=== PATIENT | female | born 1975 | race Caucasian/White ===

== ENCOUNTER → 2018-12-09 14:42 | Outpatient (CLI) | payer OTHER, SELFPAY ==
[2018-12-12 13:11] LABS: HPV Reflexed? NOT INDICATED
== END ==
PROVIDERS: Visit Provider Obstetrics & Gynecology
DX: Z12.4 Encounter for screening for malignant neoplasm of cervix (principal)
CPT/HCPCS: 87624; 88175; G0145

== ENCOUNTER → 2019-01-20 10:06 | Outpatient (CLI) | payer SELFPAY ==
--- NOTE | 2019-01-20 10:11 | BI_ITS ---
MAMMOGRAPHY - BILATERAL SCREENING REASON FOR EXAM: Female, 43 years old. Routine annual screening examination. PERTINENT HISTORY: Grandmother with breast cancer. Aunts with breast cancer. TECHNIQUE: Digital bilateral breast don (3D mammographic acquisition) in the CC and MLO projections. 2-D mediolateral oblique (MLO) and craniocaudad (CC) views of both breasts were obtained. CAD: Full Field Digital Mammography with Computer Added Detection was performed. COMPARISON: Comparison is made with prior mammogram dated March 26, 2017. FINDINGS: Breast Composition: There are scattered areas of fibroglandular density. There are no dominant masses or suspicious calcifications. The previously seen 1.3 cm x 1.3 cm nodular density in the retroareolar region of the left breast as markedly decreased in size. A tissue clip marker is seen within the included with the history of prior biopsy. Faint calcifications are seen within this nodule. This is unchanged. No other significant abnormalities are identified. BI/SCREENING MAMM (CAD), BILAT IMPRESSION: Status post biopsy of the left retroareolar nodule with a tissue clip marker within it. The nodule has also completely resolved at this time. Mild residual calcifications seen. Yearly follow-up mammogram recommended. (A) ASSESSMENT CATEGORY: BIRADS Category 2: Benign. A letter regarding these results will be sent to the patient by the facility within 30 days. Approximately 10% of breast cancers are not detected by mammography. A normal mammogram should not delay biopsy of a clinically suspicious abnormality. [id number] Electronically Signed: Toño Mahmood, at 11:23 EDT , Service support ,
== END ==
PROVIDERS: Family Provider Family Medicine; PCP Family Medicine; Referring Provider Obstetrics & Gynecology; Visit Provider Obstetrics & Gynecology
DX: Z12.31 Encounter for screening mammogram for malignant neoplasm of breast (principal)
CPT/HCPCS: 77063; 77067

== ENCOUNTER 2022-11-20 07:49 | Day surgery (SDC) | payer SELFPAY, OTHER ==
[2022-11-20] VITALS (7 sets, daily range): BP systolic 134–154; BP diastolic 78–93; PULSE 73–96; RESP 15–18; TEMP 36.2–36.6; O2SAT 99–100; BMI 37.0
[2022-11-20] MEDS: Lactated Ringers 1,000 ML 15 ML IV (08:10)
--- NOTE | 2022-11-20 10:04 | HP.PCM_ITS ---
HPI - General HPI Narrative JOSY LEE, is a 47 F who presents for left knee scope, partial MM. no changes to h and p. Wishes to proceed. left knee marked. Narcotic counselling. Post op activity details given, ROM and WBAT crutches PRN for 2 weeks. OK to proceed. MR#: [id number] Acct: [id number] Name:PIPER GANT JJ Rep #: [id number] : 07/27/1981 ? ? Provider: Dr. Ritesh Mcgill MD Age/Sex:? 41/F ? ? Location: [facility] [place] Status: Signed Intake Intake Visit Reasons:?RIGHT SHOULDER Allergies No Known Allergies Allergy (Verified 10/25/22 09:24) Medications ibuprofen 200 mg tablet 200 mg PO Q6H PRN 06/14/22 [History Confirmed 10/25/22] cholecalciferol (vitamin D3) 125 mcg (5,000 unit) capsule 125 mcg PO DAILY 10/25/22 [History Confirmed 10/25/22] PFSH Medical History? Compartment syndrome Hypothyroid Impingement syndrome of right shoulder Irritant contact dermatitis due to plant Right rotator cuff tear Surgical History? History of Family History? Mother Diabetes Hypertension Cancer Uterine cancerFather Hypertension Myocardial infarctionGrandfather Cancer Heart diseaseGrandmother CVA (cerebral vascular accident) Heart disease Social History? Smoking Status:? Never smoker HPI RIGHT SHOULDER Details: Parts of this documentation were recorded by a scribe, this documentation accurately reflects the service provided and the decisions made by me, Dr. Ritesh Mcgill MD 10/25/22 0848. 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 She is still having pain anteriorly as well as laterally going down the arm worse with lifting.? She does have to do some physical activities lifting related to her job at the [employer] and [employer].? She seems to have some pain at the top of the arm as well as with reaching across the body. Ortho Exam General General: Yes no acute distress Neurologic: Yes alert and Yes oriented x3 Psychologic: Yes reasonable and appropriate Right Shoulder Skin/Wound: Yes CDI, No ecchymosis, No erythema and No swelling Testing: Positive Hawkin's, Neer's, TTP AC Joint, AROM-Forward Elevation 0-180, PROM-External Rotation at side 0-60, empty can and cross arm; Negative TTP Biceps, Drop Arm, Apprehension Test or Sulcus Sign SHOULDER: painful arc POS Supplemental Info [facility] Imaging Services [address] [place] [address] Upper Ext? Joint Only(Routine) MR#:? [id number] Acct: [id number] Name:? PIPER FARMER JJ Rep #: [id number] :?? 07/27/1981 F 41 ? From:? ? Devin Case MD PCP: Dr. Boris Kat, DO ? Status: REG CLI Study: Upper Ext? Joint Only(Routine) ? Date of Exam: 10/23/22 Exam# [id number] ? Ordering Dr:? Ritesh Mcgill MD EXAM:? MR RIGHT UPPER EXTREMITY WITHOUT INTRAVENOUS CONTRAST, SHOULDER CLINICAL INDICATION:? pain, rule out RC tear, linmited r.o.m TECHNIQUE:? Multiplanar and multisequence MR images of the right shoulder without intravenous contrast.? This report was created using [employer] report generation technology. COMPARISON:? None. FINDINGS: TENDONS: SUPRASPINATUS:? Unremarkable.? Intact. INFRASPINATUS:? Unremarkable.? Intact. SUBSCAPULARIS:? Unremarkable.? Intact. TERES MINOR:? Unremarkable.? Intact. BICEPS BRACHII, LONG HEAD:? Unremarkable.? The extra-articular biceps tendon is in the bicipital groove.? The intra-articular biceps tendon is normal. LIGAMENTS: GLENOHUMERAL:? Unremarkable.? Intact. CORACOACROMIAL:? Type II acromion with curved undersurface. No subacromial enthesophyte or os acromiale. No coracoacromial ligament thickening. MUSCLES:? Unremarkable.? No rotator cuff muscle atrophy. FLUID:? Unremarkable.? No joint effusion.? No subacromial-subdeltoid space bursal fluid. CARTILAGE:? Unremarkable.? Articular cartilage intact. GLENOID LABRUM:? Unremarkable.? Intact, limited evaluation on non-arthrographic exam. BONES/JOINTS: Mild hypertrophic degenerative changes of the acromioclavicular joint.? No fracture.? No abnormal bone marrow signal. OTHER SOFT TISSUES:? Unremarkable.? No rotator interval edema. MRI/Upper Ext? Joint Only(Routine) IMPRESSION: No rotator cuff or labral tearing. Mild degenerative changes of the acromioclavicular joint. ? Electronically Signed: Devin Case MD at 22:05 EST Reading Location ID and State: [facility] / [place] Tel , Service support? , ? Coding Level of Care Code Off vis,est,level 4 Diagnoses Impingement syndrome of right shoulder? M75.41 Right shoulder pain? M25.511 Time Spent (min) 30 Assessment and Plan Assessment and Plan (1) Impingement syndrome of right shoulder: ?Status:?Acute ?Plan: 41-year-old female with right shoulder pain despite extensive conservative management.? She has mild AC joint arthrosis on the MRI no obvious rotator cuff tear but this does seem to be internal impingement/tendinitis of the rotator cuff tendons and bursitis.? She has failed extensive conservative management including injection and therapy.? She wishes to go ahead with surgical management in this case I would recommend right shoulder arthroscopy, subacromial decompression, distal clavicle excision.? Discussed the pros and cons risks and benefits of continued conservative management versus surgery.? Small risk of AC joint late instability with distal clavicle excision and the subacromial decompression the undersurface acromion appears relatively flat but this also includes bursectomy which typically does help for laterally based shoulder pain worse with lifting.? We discussed the diagnosis prognosis and afte rcare associate with surgery 2 weeks to heal the incision 6 weeks likely before going back to any sort of significant activity. As well as if I did see a rotator cuff tear then I would go ahead and repair that but if there is no repair to be done? then no activity restrictions and trying to discontinue the sling within the first 2 weeks.? The patient understood had no further questions or concerns. ?pros and cons risks and benefits were discussed with the patient including but not limited to infection, pain, stiffness, bleeding, damage to surrounding structures, neurovascular injury, recurrence or retear, failure or wear of hardware or fixation, instability, fracture, deep vein thrombosis and pulmonary embolism, anesthetic risks, patient dissatisfaction, need for further surgery and other risks.? Patient understood and wished to proceed with surgery, and signed the informed consent documentation.? PFSH Medical History Arthritis History of edema History of pain when walking Left knee pain Migraine headache Non-smoker Osteoarthritis of left knee Tear of medial meniscus of left knee Wears dentures Wears glasses Home Medications tramadol 50 mg tablet 50 mg PO Q6H PRN Pain 11/13/22 [History Last Taken Unknown] Allergy/AdvReac Type Severity Reaction Status Date / Time acetaminophen [From Vicodin] Allergy Other Verified 11/20/22 08:22 hydrocodone [From Vicodin] Allergy Other Verified 11/20/22 08:22 Surgical History History of delivery Hx of laparoscopy Hx of ovarian cystectomy Social History Smoking Status: Never smoker Vital Signs Vital Signs Vital Signs: 11/20/22 08:23 11/20/22 08:23 Temperature 98 F Temperature Source Temporal Pulse Rate 73 Respiratory Rate 15 Respiratory Pattern Normal Blood Pressure 134/78 H Blood Pressure Mean 96 Blood Pressure Source Monitor Blood Pressure Position Semi-Fowlers Blood Pressure Location Left Arm Pulse Ox 100 Oxygen Delivery Method Room Air Weight Weight: 216 lb 0.848 oz Body Mass Index (BMI) 37.0
[2022-11-20] MEDS: Cefazolin 2 GM in 0.9% Normal Saline 100 ML IV (12:02)
[2022-11-20] MEDS: Epinephrine (1 mg/ml) 1 MG/ML VIAL (12:46)
--- NOTE | 2022-11-20 12:51 | OP.PCM_ITS ---
Problems Associated Problem List Diagnoses (1) Osteoarthritis of left knee: (2) Tear of medial meniscus of left knee: (3) Synovial plica of left knee: Report of Operation Date of Procedure: 11/20/22 Pre-Operative Diagnosis: Left knee arthritis and medial meniscus tear Post-Operative Diagnosis: Same and medial plica Surgery/Procedure Performed:: Left knee arthroscopy debridement and partial medial meniscectomy and removal of plica Description of Surgical Findings:: Patient brought to the operating room theater. Placed supine on the operating table. General anesthesia induced. 2 g IV Ancef administered prior to start of the case. Stress positioner to the patient's left lower extremity. 44 inch tourniquet applied appropriately padded to the left thigh. All bony prominences padded. Lower extremity prepped and draped in the usual sterile fashion prior to base prep solution allowing over 3 minutes drying time prior to draping. Preoperative timeout performed to confirm the site patient and the surgery. Began by elevating the leg and inflating the tourniquet to 250 mmHg. I made standard anterolateral and anteromedial arthroscopy portals. Grade 4 changes at the trochlea. Medial patellar facet grade 2 changes lateral patellar facet grade 4 changes. Debrided a moderate to large sized plica at the medial aspect of the knee. Gently debrided any cartilage flaps. Medial and lateral gutters entered no loose bodies but moderate sized osteophytes. ACL have some mild degenerative changes but intact. Medial compartment grade 3- 4 changes on the femoral side as well as grade 3 changes on the tibial side. Degenerative posterior horn medial meniscus tear debrided to stable margins removed about 10% of the total surface area of the meniscus. Lateral compartment entered. Again there is areas of the full-thickness cartilage loss lateral femoral condyle. Tibial side grade 1. Meniscus appeared intact and normal. Arthroscopy pictures taken and saved throughout. Case terminated tourniquet let down. Meticulous hemostasis. Skin cleaned with wet and dry dressing. Portals closed with Steri-Strips followed by Adaptic 4 x 4 gauze abdominal pad and 6 inch Nathanael bandages. Patient woken up from the GA and taken to postanesthetic care unit in stable position. Plan to the patient gentle range of motion weightbearing as tolerated and crutches follow-up in the office in 2 days time and discharged home according to day surgery criteria when they are stable and comfortable. Surgeon: Ritesh Mcgill Type of Anesthesia: General and Local Anesthesiologist: Teo Aragon Estimated Blood Loss (mL): 20 Complications none Admit VTE Documentation VTE Present on Admission: No VTE Mechan Device Prophylaxis: SCD's VTE Pharm Prophylaxis ordered?: No Reason prophylaxis not ordered:: Treatment Not Indicated Procedures Musculoskeletal 20xxx-29xxx: Other Procedure See Report
--- NOTE | 2022-11-20 13:11 | DCINST_ITS ---
Discharge Instructions Diet Discharge Diet: No restrictions Activity Ice area for (Minutes): 10 Weight Bearing Status: Full weight bearing Additional Activity Instructions:: ROM as tolerated, crutches as needed Dressing / Incision Call your doctor if your incision/area has: Continuous Slow Oozing, Sudden Increased Bleeding, Increased Pain/ Swelling, Increased Redness, Foul Smelling Discharge and Swelling at the incision site Change Dressing in: leave in place till F/U Follow Up Care Please Follow Up With: Ritesh Mcgill MD When: 2 days Test Results: Test results from this visit will be discussed in further detail at your follow- up appointment, if applicable. Discharge Plan Admission Attending Provider: Ritesh Mcgill Primary Care Provider: Raymond Romero Instructions Patient Instructions: After Knee Arthroscopy Discharge Orders/Prescriptions Prescriptions: No Action tramadol 50 mg Tablet 50 mg PO Q6H PRN (Reason: Pain) Referrals / Follow Up: Ritesh Mcgill MD [Med Staff - Active Staff] - Raymond Romero MD [Primary Care Provider] - Disposition Disposition (needs filled in before D/C Order can be placed): Home, Self Care
--- NOTE | 2022-11-20 13:21 | DCINST_ITS ---
Discharge Instructions Diet Discharge Diet: No restrictions Activity Ice area for (Minutes): 10 Weight Bearing Status: Full weight bearing Additional Activity Instructions:: ROM as tolerated, crutches as needed Dressing / Incision Call your doctor if your incision/area has: Continuous Slow Oozing, Sudden Increased Bleeding, Increased Pain/ Swelling, Increased Redness, Foul Smelling Discharge and Swelling at the incision site Follow Up Care Please Follow Up With: Ritesh Mcgill MD Test Results: Test results from this visit will be discussed in further detail at your follow- up appointment, if applicable. Discharge Plan Admission Attending Provider: Ritesh Mcgill Primary Care Provider: Raymond Romero Instructions Patient Instructions: After Knee Arthroscopy Discharge Orders/Prescriptions Prescriptions: New hydromorphone [Dilaudid] 2 mg tablet 2 mg PO Q4H MDD 6 PRN (Reason: pain) 7 Days Qty: 20 0RF No Action tramadol 50 mg Tablet 50 mg PO Q6H PRN (Reason: Pain) Referrals / Follow Up: Ritesh Mcgill MD [Med Staff - Active Staff] - Raymond Romero MD [Primary Care Provider] - Disposition Disposition (needs filled in before D/C Order can be placed): Home, Self Care
[2022-11-20] MEDS: HYDROmorphone 2 MG TABLET PO (14:50)
--- NOTE | 2023-01-01 14:50 | PCM.HP.STD ---
HPI - General HPI Narrative JOSY LEE, is a 47 F who presents for left knee arthroscopy. The record was deficient and missed at the day of surgery, however, per my recollection on this date, Jan 01, 2023, the patient, site and operation including consent were confirmed day of surgery. Including no changes to h and p. Extremity marked. Post op care and narcotic counselling discussed. OK to proceed. Acct: [id number] Name:? JOSY LEE Rep #: [id number] : 1975 ? ? Provider: Dr. Ritesh Mcgill MD Age/Sex:? 47/F ? ? Location: [facility] [place].[facility] Status: Signed Intake Intake Visit Reasons:?LEFT KNEE PFSH Medical History?(Updated 10/24/22 @ 09:48 by Ritesh Mcgill MD) Left knee pain Osteoarthritis of left knee Tear of medial meniscus of left knee Social History Smoking Status:? Never smoker HPI LEFT KNEE Details: Parts of this documentation were recorded by a scribe, this documentation accurately reflects the service provided and the decisions made by me, Dr. Ritesh Mcgill MD 10/22/22 [id number]. JOSY LEE is a 47 year old F here today for left knee pain, 6 months, twisted it getting out of buggy, medial side pain and locking, had a cortisone injection in June, no help. Maybe for 2 days. Swelling usually there. Tried oral anti inflamms. ? Ortho Exam General General: Yes no acute distress Neurologic: Yes alert and Yes oriented x3 Psychologic: Yes reasonable and appropriate Right Knee Patella Translation: 2 Left Knee Skin/Wound: Yes CDI, No ecchymosis, No erythema and No swelling Knee ROM: Yes ROM-Flexion 0-140 Examination: Yes med jt line tenderness, Yes Lat jt line tenderness, No TTP inf pole patella, Yes Crepitus, Yes Pain with flexion and Yes Jorge Luis's Test Quad Atrophy: No Stability: NML: Anterior Drawer, NML: Blaine, NML: Posterior Drawer, NML: Valgus 0, NML: Valgus 30, NML: Varus 0 and NML: Varus 30 Apprehension with Lateral Translation: No Patella Translation: 2 Patellar Tilt Normal: Yes Patella Grind: No KNEE: Normal distal neurovascular exam.? No hip pain with range of motion testing. Supplemental Info M RI of the knee from 06/05/2022 [facility]. Radiologist interpretation is 1.? Complex near full-thickness tear posterior horn of medial meniscus. 2.? Tricompartmental cartilage loss cartilage fissuring and degenerative bone spurring 3 partial interstitial tear of the ACL for medial meniscal root ligament likely chronically torn 5 joint effusion. The body of the meniscus is peripherally extruded 0.5 cm.? Full-thickness segment of cartilage loss of the femoral condyle of the medial compartment as well as focal cartilage fissuring at the tibial plateau. Radiographs taken today's show normal alignment moderate tricompartmental osteoarthritis. Coding Level of Care Code Off vis,new,level 4 Diagnoses Left knee pain? M25.562 Osteoarthritis of left knee? M17.12 Tear of medial meniscus of left knee? S83.242A Time Spent (min) 45 Assessment and Plan Assessment and Plan (1) Left knee pain: ?Status:?Acute (2) Osteoarthritis of left knee: ?Status:?Acute (3) Tear of medial meniscus of left knee: ?Status:?Acute ?Plan: 47-year-old female with normal alignment and tricompartmental osteoarthritis with a root tear and extrusion of the medial meniscus her options would be rest ice doing nothing anti-inflammatories offloader brace physical therapy intra-articular cortisone (she tried already) or viscosupplementation injections high tibial osteotomy I do not think she would be recommended for this given elevated BMI and osteoarthritis in the lateral compartment as well as medial meniscus root repair this is typically performed to prevent arthritis from progressing which she already has full-thickness cartilage loss on the MRI so not typically indicated here.? Other options would be knee arthroscopy debridement partial medial meniscectomy as well as total knee arthroplasty.? She would like to try the smaller operation and that proceed with knee arthroscopy I did warn her that this may not completely resolve her symptoms however this may delay the delay the need for total knee arthroplasty and resulting cost savings in the long run.? We discussed the pros and cons risks and benefits of each of these methods of treatment and she wished to proceed with surgery. Pros and cons risks and benefits were discussed with the patient including but not limited to infection, pain, stiffness, bleeding, damage to surrounding structures, neurovascular injury, recurrence or retear, failure or wear of hardware or fixation, instability, fracture, deep vein thrombosis and pulmonary embolism, anesthetic risks, patient dissatisfaction, need for further surgery and other risks.? Patient understood and wished to proceed with surgery, and signed the informed consent documentation. [facility] Medical History Arthritis History of edema History of pain when walking Left knee pain Migraine headache Non-smoker Osteoarthritis of left knee Synovial plica of left knee Tear of medial meniscus of left knee Wears dentures Wears glasses Home Medications NK 12/31/22 [History Last Taken Unknown] Allergy/AdvReac Type Severity Reaction Status Date / Time acetaminophen [From Vicodin] Allergy Other Verified 12/31/22 09:49 hydrocodone [From Vicodin] Allergy Other Verified 12/31/22 09:49 Surgical History History of delivery Hx of laparoscopy Hx of ovarian cystectomy Social History Smoking Status: Never smoker Vital Signs Vital Signs Vital Signs: Weight Weight: 216 lb 0.848 oz Body Mass Index (BMI) 37.0
== END 2022-11-20 15:58 | disposition home or self-care (01) ==
LOC: SDC 07:54 → AC 07:56
PROVIDERS: PCP Family Medicine; Referring Provider Orthopaedic Surgery Sports Medicine; Visit Provider Orthopaedic Surgery Sports Medicine
PROC: (CPT 29870; principal; 2022-11-20 11:25)
DX: M17.12 Unilateral primary osteoarthritis, left knee (principal); M67.52 Plica syndrome, left knee; S83.242A Other tear of medial meniscus, current injury, left knee, initial encounter; X50.1XXA Overexertion from prolonged static or awkward postures, initial encounter; Y93.89 Activity, other specified; Y99.8 Other external cause status
CPT/HCPCS: 29881; 01400; J7120; J2405

== ENCOUNTER → 2022-12-18 | Outpatient (CLI) | payer OTHER, SELFPAY ==
[2022-12-24 18:20] LABS: HPV APTIMA, High Risk Negative (Negative)
== END | disposition home or self-care (01) ==
LOC: LABSPEC 11:05
PROVIDERS: PCP Family Medicine; Visit Provider Obstetrics & Gynecology
DX: Z12.4 Encounter for screening for malignant neoplasm of cervix (principal)
CPT/HCPCS: 87624; 88175; G0145

== ENCOUNTER → 2022-12-31 | Outpatient (CLI) | payer SELFPAY ==
--- NOTE | 2022-12-31 10:32 | BI_ITS ---
MAMMOGRAPHY - BILATERAL SCREENING REASON FOR EXAM: Female, 47 years old. Routine annual screening examination. PERTINENT HISTORY: Prior left ultrasound-guided breast biopsy. Grandmother with breast cancer. Aunts with breast cancer. TECHNIQUE: Digital bilateral breast katherine (3D mammographic acquisition) in the CC and MLO projections. 2-D mediolateral oblique (MLO) and craniocaudad (CC) views of both breasts were obtained. CAD: Full Field Digital Mammography with Computer Added Detection was performed. COMPARISON: Comparison is made with prior study dated 01/20/2019. FINDINGS: Breast Composition: There are scattered areas of fibroglandular density. There are no dominant masses or suspicious calcifications. A tissue clip marker is once again seen in the central retroareolar region of the left breast. No other significant abnormalities are identified. There has been no significant change since the prior study. BI/SCRN MAMM (CAD)W/KATHERINE BILAT IMPRESSION: Stable bilateral screening mammogram. Yearly follow-up mammogram recommended. (A) ASSESSMENT CATEGORY: BIRADS Category 2: Benign. A letter regarding these results will be sent to the patient by the facility within 30 days. Approximately 10% of breast cancers are not detected by mammography. A normal mammogram should not delay biopsy of a clinically suspicious abnormality. [id number] Electronically Signed: Toño Mahmood MD at 12:39 EST ,
== END | disposition home or self-care (01) ==
LOC: OPBI 10:29
PROVIDERS: PCP Family Medicine; Referring Provider Obstetrics & Gynecology; Visit Provider Obstetrics & Gynecology
DX: Z12.31 Encounter for screening mammogram for malignant neoplasm of breast (principal)
CPT/HCPCS: 77063; 77067

== ENCOUNTER → 2023-01-16 | Outpatient (CLI) | payer OTHER, SELFPAY ==
[2023-01-16 11:11] LABS: Hemoglobin A1c 5.2 % (3.8-5.6)
[2023-01-16 11:31] LABS: Cholesterol 111 mg/dL (200); High Density Lipoprotein 59 mg/dL; Triglycerides 54 mg/dL; Very Low Density Lipoprotein 11 mg/dL (5-40)
== END | disposition home or self-care (01) ==
PROVIDERS: PCP Family Medicine; Visit Provider Obstetrics & Gynecology
DX: Z01.419 Encounter for gynecological examination (general) (routine) without abnormal findings (principal)
CPT/HCPCS: 36415; 80061; 83036

== ENCOUNTER 2023-03-04 12:00 | Outpatient (RCR) | payer SELFPAY ==
--- NOTE | 2022-11-27 09:05 | HP.PTEVAL ---
Patient's Visit Information JOSY LEE is a 47 year old F referred to Physical Therapy by Dr. Ritesh Mcgill MD with a diagnosis of Left Knee Scope. Date of Evaluation: 11/27/22 Physical Therapist: Zahida Lazaro DPT - Visit Plan Frequency: 1x/Week Duration: 4 Weeks Plan: Focus on HEP- LE and core strength/stabilization s/p Left Knee Scope- Functional Mobility. HEP Given IE: HR/TR, SLS, Sit to Stand, Quad Set, SLR, Knee Extn with Bolster, Heel Slide - Subjective Patient reports that she had surgery last week and she would like to regain strength and movement in her knee. She has been limping for awhile. She had a debridement of the left knee. She reports that its more stiff than sore. Worst: 3/10 Agg: up on it for any length of time. Eases: sitting down, Ibuprofen and ice machine. Best: 0/10. Pain is located in the medial border of the knee and does radiate to the hip sometimes. Describes the pain in her knee is a dull and achy. No N/T in the toes. Sleep: not anymore. She is normally pretty active- she works at home and has a family. PMHx/Meds: no changes since surgery. - Objective Posture: FH, RS- can correct with verbal cues but does not maintain. Observation: incision healing well no s/s of infection- steristrips intact. Gait: antalgic- decreased heel/toe pattern on the left LE- decreased stance. Stairs: asc/desc recip with 2 HR and significant pull with UE. HR/TR: able but reports discomfort and reports instability. SLS: weight shift but unable to SLS due to reports of instability. Girth: no edema noted. ROM: 10-110 degrees with pain at end ranges. Strength: Ankle: 5/5, Knee: 4-/5 with discomfort, Hip: SLR: able but slow- quad set is visible but small. Extn: 4/5, Abd: 4/5 with pain, Add: 4+/5, IR/ER: 4-/5 with pain. Core: poor. Flex: HS: moderate, Gastroc: moderate - Balance/Special Test Scores Lower Extremity Functional Score: 36 - Goals Goal 1:: Patient will be I with HEP and progression Goal Time Frame: 4-6 Weeks Goal 2:: Patient will ambulate >300 feet with a normalized gait pattern Goal Time Frame: 4-6 Weeks Goal 3:: Patient will asc/desc 8 stairs recip with 1 HR Goal Time Frame: 4-6 Weeks Goal 4:: Patient will demo 0-125 degrees of ROM in the left knee Goal Time Frame: 4-6 Weeks Goal 5:: Patient will report 80% improvement Goal Time Frame: 4-6 Weeks - Rehabilitation Potential Physical Therapy Diagnosis: Patient presents with hypomobility- she has decreased LE pain free ROM, LE and core strength/stabilization, flex and muscular endurance leading to abnormal gait pattern and increased pain with ADL's. Rehabilitation Potential: Good - Anticipated Interventions Patient/Client Instruction: Educate patient on: Benefits of Fitness Program Therapeutic Exercise to Include: Strength training, Endurance training, Balance training, Coordination, Agility training, Body mechanics, Postural training, Flexibilty training, Gait and locomotor training, Neuromotor development, Dynamic Lumbar Stabilization, Scapular Strength/Stabilization For the Purpose of:: To improve muscle performance and motor function Cryotherapy (ice pack, ice massage): Yes Thermo therapy (hot pack): Yes Thank you for the opportunity to evaluate your patient. For Medicare and Medicare HMO plans, please review the plan of care and approve it. It will need to be FAXED BACK to us at [phone] for Medicare purposes. For Medicare only, by signing this I certify the plan of care. Please let me know if there are questions or concerns regarding this plan of care. Physician Signature: Date:
--- NOTE | 2022-12-25 10:29 | HP.PTREVAL_ITS ---
Dr. Ritesh Mcgill MD, It has been my pleasure to treat JOSY LEE over the last 6 visits for Left Knee Scope. Please see the progress note below for an update on the physical therapy plan of care! Subjective: She reports that its coming but not there yet- stairs going down is worse- up she has tried without a railing and she prefers to use the railing. Her knee still gets very tired- she knows that it hasn't even been 6 weeks. Her goal is to get back to normal function. She does pain occasionally- she did some sewing and had to use pedals back and forth. Objective/Function: Posture: FH, RS- can correct with verbal cues but does not maintain. Gait: slightly antalgic- decreased heel/toe pattern on the left LE- d ecreased stance. Stairs: asc/desc recip with 1 HR and significant pull with UE. HR/TR: able SLS:5 seconds Girth: no edema noted. ROM: 0-120 degrees with pain at end ranges. Strength: Ankle: 5/5, Knee: 4+/5 Hip: Flexion: 4/5 Extn: 4/5, Abd: 4/5 with pain, Add: 4+/5, IR/ER: 4-/5 with pain. Core: poor. Flex: HS: moderate, Gastroc: moderate Plan Plan: 12/25/22: Perform HEP 2-3 weeks then follow up- if no issues d/c- if needs to continue 2x a week for 4 weeks is appropriate for strength and functional mobility. Focus on HEP- LE and core strength/stabilization s/p Left Knee Scope- Functional Mobility. HEP Given IE: HR/TR, SLS, Sit to Stand, Quad Set, SLR, Knee Extn with Bolster, Heel Slide Balance/Gait/Functional tests - Balance/Special Test Scores Lower Extremity Functional Score: 50 Goals Goal 1:: Patient will be I with HEP and progression Goal Time Frame: 4-6 Weeks Goal 2:: Patient will ambulate >300 feet with a normalized gait pattern Goal Time Frame: 4-6 Weeks Goal 3:: Patient will asc/desc 8 stairs recip with 1 HR Goal Time Frame: 4-6 Weeks Goal 4:: Patient will demo 0-125 degrees of ROM in the left knee Goal Time Frame: 4-6 Weeks Goal 5:: Patient will report 80% improvement Goal Time Frame: 4-6 Weeks Anticipated Interventions Patient/Client Instruction: Educate patient on: Benefits of Fitness Program Therapeutic Exercise to Include: Strength training, Endurance training, Balance training, Coordination, Agility training, Body mechanics, Postural training, Flexibilty training, Gait and locomotor training, Neuromotor development, Dynamic Lumbar Stabilization, Scapular Strength/Stabilization For the Purpose of:: To improve muscle performance and motor function Cryotherapy (ice pack, ice massage): Yes Thermo therapy (hot pack): Yes Please do not hesitate to contact me at [phone] by phone or if you have questions or concerns regarding this new plan of care! Sincerely, JIMI MayesT
--- NOTE | 2023-03-04 13:04 | HP.PTDCSUM ---
It has been my pleasure to treat JOSY LEE referred by Dr. Ritesh Mcgill MD, with the diagnosis of Left Knee Scope for a total of 11 visit(s). Discharge Date: 03/04/23 Please see the following information for a summary of their discharge status. Subjective: Pt feels her L knee is better and she is feeling better each weak. She has HEP and feels comfortable doing it at home. Her worst is still going down steps. She feels it is getting better. L knee Pain Intensity (Out of 10): 0 % Improvement: 80 Objective/Function: 0-116. Stairs: walks up the stairs recip with 1 hand rail with signs of weakness ascending and descending the stairs she has very little control. Gait: walks with slight decrease stance time on the L. Goal 1:: Patient will be I with HEP and progression Goal Progress: Goal Met Goal 2:: Patient will ambulate >300 feet with a normalized gait pattern Goal Progress: Progressing Goal 3:: Patient will asc/desc 8 stairs recip with 1 HR Goal Progress: Progressing Goal 4:: Patient will demo 0-125 degrees of ROM in the left knee Goal Progress: Progressing Goal 5:: Patient will report 80% improvement Goal Progress: Goal Met Plan: DC PT to HEP Discharge Comments: DC PT to HEP If there are questions or concerns regarding this patient's physical therapy, please feel free to call me at [phone]. Thank you for the referral of this patient. Sincerely, Melody Mayo, MPT Balance/Gait/Functional tests - Balance/Special Test Scores Lower Extremity Functional Score: 58
== END 2023-03-04 19:00 | disposition home or self-care (01) ==
LOC: PT 12:00
PROVIDERS: PCP Family Medicine; Referring Provider Orthopaedic Surgery Sports Medicine; Visit Provider Orthopaedic Surgery Sports Medicine
DX: M67.52 Plica syndrome, left knee (principal); S83.242D Other tear of medial meniscus, current injury, left knee, subsequent encounter; M17.12 Unilateral primary osteoarthritis, left knee
CPT/HCPCS: 97110; 97162; 97164; 97530

== ENCOUNTER → 2024-08-24 | Outpatient (CLI) | payer SELFPAY, OTHER ==
--- NOTE | 2024-08-24 15:29 | BI_ITS ---
MAMMOGRAPHY - BILATERAL SCREENING 3-D TOMOSYNTHESIS REASON FOR EXAM: Female, 49 years old. screening for breast cancer PERTINENT HISTORY: No significant family history. TECHNIQUE: 2-D mammograms and 3-D Tomosynthesis of the breast (s) were performed. CAD was performed. COMPARISON: 12/31/2022 FINDINGS: The breast composition is composed of scattered fibroglandular density. Scattered benign calcifications are seen. No dense spiculated masses or suspicious microcalcifications are identified. No architectural distortion is identified. There is no skin thickening or retraction. There has been no significant change since the prior study. BI/SCRN MAMM (CAD)W/KATHERINE BILAT IMPRESSION: No mammographic signs of malignancy. Routine yearly mammograms recommended. ASSESSMENT CATEGORY: BIRADS Category 1: Negative. A letter regarding these results will be sent to the patient by the facility within 30 days. FOLLOW UP RECOMMENDATION: Yearly follow up mammogram recommended. (A) Approximately 10% of breast cancers are not detected by mammography. A normal mammogram should not delay biopsy of a clinically suspicious abnormality. Electronically Signed: Reji Parker MD at 8:42 EDT ,
--- NOTE | 2024-08-24 16:12 | US_ITS ---
EXAM: US PELVIS TRANSABDOMINAL AND TRANSVAGINAL, COMPLETE CLINICAL INDICATION: RT PAIN TECHNIQUE: Transabdominal and transvaginal pelvic ultrasound was performed with grayscale and color Doppler imaging. Transvaginal imaging was used for better evaluation of the endometrium and adnexa. COMPARISON: No relevant prior studies available. FINDINGS: UTERUS/CERVIX: Nabothian cysts present. Minimal fluid within the endometrium. scar in the anterior lower uterine segment. Intramural fibroid measuring 1.1 cm. Anteverted. The uterus measures 11.4 x 7.2 x 4.5 cm. The endometrial stripe measures 0.7 cm in thickness. RIGHT OVARY: Echogenic focus within the right ovary measuring 0.6 cm is nonspecific. Simple right ovarian cyst for which no follow-up is indicated. Blood flow is present in the right ovary. The right ovary measures 2.1 x 1.9 x 1.2 cm. LEFT OVARY: No significant abnormality. Blood flow is present in the left ovary. The left ovary measures 2.8 x 2.5 x 1.5 cm. FREE FLUID: None. BLADDER: Normal as visualized. Wall is normal thickness for degree of distention. US/Pelvic w/ Transvaginal IMPRESSION: Echogenic focus within the right ovary measuring 0.6 cm is nonspecific. This is indeterminate, perhaps a dermoid. ACR White Paper guidelines (Key, et. al. Radiology 2010; 256(3):943-954) suggest surgical evaluation or yearly pelvic ultrasound follow-up to document stability. No additional acute findings. Electronically Signed: Reji Cowan DO at 0:03 EDT ,
== END | disposition home or self-care (01) ==
PROVIDERS: PCP Family Medicine; Referring Provider Nurse Practitioner Women's Health; Visit Provider Nurse Practitioner Women's Health
DX: Z12.31 Encounter for screening mammogram for malignant neoplasm of breast (principal); R10.2 Pelvic and perineal pain
CPT/HCPCS: 76830; 76856; 77063; 77067

== ENCOUNTER 2024-11-17 07:02 | Day surgery (SDC) | payer SELFPAY, OTHER ==
[2024-11-17] VITALS (8 sets, daily range): BP systolic 115–125; BP diastolic 77–87; PULSE 16–80; RESP 16; TEMP 36.2–36.6; O2SAT 100; BMI 38.2
--- NOTE | 2024-11-17 07:24 | PRE.ANES_ITS ---
ASA Classification* ASA Classification ASA Classification: 2 Assessment & Plan Anesthesia* Anesthesia Assessment Anesthesia Assessment: Discussed sedation and/or anesthesia options, risks, benefits, and alternatives with patient/parents/legal guardian/POA. Questions invited. The patient/parents/legal guardian/POA seems to understand and agrees to proceed with anesthesia plan. Reviewed the physical assessment, medical history, allergy history and patient home medications list prior to surgery/procedure/anesthetic and documented any changes. Performed airway and anesthesia risk assessments. Anesthesia Type Anesthesia Type: MAC Anesthesia Focused Assessment* Temperature: 97.8 F Pulse Rate: 16 Blood Pressure: 125/87 Respiratory Rate: 16 Pulse Ox: 100 Airway Assessment Mouth opens: >3 cm Mallampati Score: II Focused Labs Anesthesia Preop lab: CBC WBC 10.6 k/mm3 (4.4-11.0) 07/29/13 04:55 RBC 3.44 M/mm3 (4.2-5.4) L 07/29/13 04:55 Hgb 10.1 g/dl (12.0-15.0) L 07/29/13 04:55 Hct 30.5 % (37-47) L 07/29/13 04:55 Plt Count 179 K/mm3 (150-450) 07/29/13 04:55 CHEMISTRY POC Glucose 94 mg/dL (70-110) 05/21/13 06:50 COAG PT 12.6 SECONDS (11.9-14.4) 07/26/13 09:50 Pre-Assessment Diagnosis/Proposed Procedure Planned Operative Procedure(s): CSCOPE Anesthesia History Anesthesia History - director power: Anesthesia History - director power Hx Hospitalization No 11/16/24 11:02 Any Problems With Anesthesia No 11/16/24 11:02 Cholinesterase deficiency No 11/16/24 11:02 You/Your Family Experience No 11/16/24 11:02 fever (hyperthermia) with Relationship Recent Exposure to Contagious No 11/17/24 07:16 Disease Does patient have nerve No 11/16/24 11:02 stimulator Patient instructed to have device shut off --Does patient have Pacemaker No 11/17/24 07:18 or ICD? When Was Last Pacemaker Check QUESTION #4 FULL TEXT: You/Your Family Experience fever (hyperthermia) with Anesthesia Last Oral Intake Last Oral intake: Last Oral Intake NPO since 04:00 11/17/24 07:18 Meds taken in AM with sips of No 11/17/24 07:18 water? Meds patient instructed to take am of surgery PONV PONV - director power: PONV - director power Female Yes 11/16/24 11:02 HX of Motion Sickness No 11/16/24 11:02 HX of N/V After Surgery No 11/16/24 11:02 Non-Smoker Yes 11/16/24 11:02 Duration of Surgery greater No 11/16/24 11:02 than 60 minutes Number of Risk Factors 2 11/16/24 11:02 PONV Score Moderate Risk 11/16/24 11:02 Height & Weight Height & Weight: Anesthesia: Height & Weight Height 5 ft 4 in 11/17/24 07:18 Weight: 101 kg 11/17/24 07:18 Body Mass Index (BMI) 38.2 11/17/24 07:18 Respiratory Assessment Respiratory Assessment - director power: Respiratory Tract Infection Hx - director power Hx Respiratory Tract Infection No 11/16/24 11:02 STOP Sleep Apnea STOP Sleep Apnea - director power: STOP Sleep Apnea - director power Hx Hypertension No 11/16/24 11:02 Hx Sleep Apnea No 11/16/24 11:02 CPAP BIPAP Do you snore loudly (louder No 11/16/24 11:02 than talking or can be heard Do you often feel tired/ No 11/16/24 11:02 fatigued/ sleepy during daytime? Has anyone observed you stop No 11/16/24 11:02 breathing during sleep? STOP Results Negative 11/16/24 11:02 QUESTION #5 FULL TEXT : Do you snore loudly (louder than talking or can be h eard through closed doors)? Tobacco Use History Tobacco Use History - director power: Tobacco Use History - director power Tobacco Use Smoking Status Never smoker 11/16/24 11:02 Hx Tobacco Use No 11/16/24 11:02 Years Smoking Packs Smoked per Day Smoking Cessation Date was within the last 15 years Hx Smoking Cessation Date Hx Smoking Cessation Counseling Hematologic Medial History Hematologic Hx - director power: Hematologic Medical Hx - clinical documentation spec Hx of Blood Transfusion No 11/16/24 11:02 Hx of Transfusion in last 3 No 11/16/24 11:02 Months Date of Last Transfusion (if within last 3 months) Ever experience any problems No 11/16/24 11:02 with transfusion(s)? Specify any problems Hx of Preganancy in last 3 N/A 11/16/24 11:02 Months Nurse Filling Out Transfusion NBUCHER 11/16/24 11:02 & Questions: Date: 11/16/24 11/16/24 11:02 Time: 11:03 11/16/24 11:02 Patient unable to answer at this time (ie. confused, unrespo /Reproduction History /Reproductive History - director power: /Reproductive Hx- director power Hx Now No 11/16/24 11:02 Gestational Age (in weeks): EDC: Hx Hx Para Hx Section SAB No 11/16/24 11:02 [facility] [place] Medical History Family hx of colon cancer Synovial plica of left knee Wears glasses Wears dentures Arthritis Migraine headache Non-smoker History of edema History of pain when walking Tear of medial meniscus of left knee Osteoarthritis of left knee Left knee pain Home Medications ?Medication ?Instructions ?Recorded ?Last Taken ?Type NK 12/31/22 Unknown History Allergy/AdvReac Type Severity Reaction Status Date / Time acetaminophen (From Vicodin) Allergy Other Verified 11/17/24 07:11 hydrocodone (From Vicodin) Allergy Other Verified 11/17/24 07:11 Family History Aunt Breast cancer Maternal Aunt Breast cancer Maternal Grandmother Breast cancer Cancer Maternal Colon cancer Aunt Colon cancer Paternal Uncle Colon cancer Maternal, before age 60 Sister Colon polyps Surgical History History of meniscectomy of left knee History of tubal ligation Hx of ovarian cystectomy Hx of laparoscopy History of delivery Social History household members: spouse current occupation: SAHM Smoking Status: Never smoker alcohol intake: never substance use type: does not use alysia/jehovah's witness: Jj seatbelt use: always do you feel safe at home: Yes additional social history: - Paul Review of Systems (Anesthesia) ROS Narrative System reviewed and no additional complaints, except as documented.
--- NOTE | 2024-11-17 07:27 | PCM.PRE.AN2 ---
ASA Classification* ASA Classification ASA Classification: 2 Assessment & Plan Anesthesia* Anesthesia Assessment Anesthesia Assessment: Discussed sedation and/or anesthesia options, risks, benefits, and alternatives with patient/parents/legal guardian/POA. Questions invited. The patient/parents/legal guardian/POA seems to understand and agrees to proceed with anesthesia plan. Reviewed the physical assessment, medical history, allergy history and patient home medications list prior to surgery/procedure/anesthetic and documented any changes. Performed airway and anesthesia risk assessments. Anesthesia Type Anesthesia Type: MAC Anesthesia Focused Assessment* Temperature: 97.8 F Pulse Rate: 16 Blood Pressure: 125/87 Respiratory Rate: 16 Pulse Ox: 100 Airway Assessment Mouth opens: >3 cm Mallampati Score: II Focused Labs Anesthesia Preop lab: CBC WBC 10.6 k/mm3 (4.4-11.0) 07/29/13 04:55 RBC 3.44 M/mm3 (4.2-5.4) L 07/29/13 04:55 Hgb 10.1 g/dl (12.0-15.0) L 07/29/13 04:55 Hct 30.5 % (37-47) L 07/29/13 04:55 Plt Count 179 K/mm3 (150-450) 07/29/13 04:55 CHEMISTRY POC Glucose 94 mg/dL (70-110) 05/21/13 06:50 COAG PT 12.6 SECONDS (11.9-14.4) 07/26/13 09:50 Pre-Assessment Diagnosis/Proposed Procedure Planned Operative Procedure(s): CSCOPE Anesthesia History Anesthesia History - senior director of global commercial technology solutions: Anesthesia History - senior director of global commercial technology solutions Hx Hospitalization No 11/16/24 11:02 Any Problems With Anesthesia No 11/16/24 11:02 Cholinesterase deficiency No 11/16/24 11:02 You/Your Family Experience No 11/16/24 11:02 fever (hyperthermia) with Relationship Recent Exposure to Contagious No 11/17/24 07:16 Disease Does patient have nerve No 11/16/24 11:02 stimulator Patient instructed to have device shut off --Does patient have Pacemaker No 11/17/24 07:18 or ICD? When Was Last Pacemaker Check QUESTION #4 FULL TEXT: You/Your Family Experience fever (hyperthermia) with Anesthesia Last Oral Intake Last Oral intake: Last Oral Intake NPO since 04:00 11/17/24 07:18 Meds taken in AM with sips of No 11/17/24 07:18 water? Meds patient instructed to take am of surgery PONV PONV - senior director of global commercial technology solutions: PONV - senior director of global commercial technology solutions Female Yes 11/16/24 11:02 HX of Motion Sickness No 11/16/24 11:02 HX of N/V After Surgery No 11/16/24 11:02 Non-Smoker Yes 11/16/24 11:02 Duration of Surgery greater No 11/16/24 11:02 than 60 minutes Number of Risk Factors 2 11/16/24 11:02 PONV Score Moderate Risk 11/16/24 11:02 Height & Weight Height & Weight: Anesthesia: Height & Weight Height 5 ft 4 in 11/17/24 07:18 Weight: 101 kg 11/17/24 07:18 Body Mass Index (BMI) 38.2 11/17/24 07:18 Respiratory Assessment Respiratory Assessment - senior director of global commercial technology solutions: Respiratory Tract Infection Hx - senior director of global commercial technology solutions Hx Respiratory Tract Infection No 11/16/24 11:02 STOP Sleep Apnea STOP Sleep Apnea - senior director of global commercial technology solutions: STOP Sleep Apnea - senior director of global commercial technology solutions Hx Hypertension No 11/16/24 11:02 Hx Sleep Apnea No 11/16/24 11:02 CPAP BIPAP Do you snore loudly (louder No 11/16/24 11:02 than talking or can be heard Do you often feel tired/ No 11/16/24 11:02 fatigued/ sleepy during daytime? Has anyone observed you stop No 11/16/24 11:02 breathing during sleep? STOP Results Negative 11/16/24 11:02 QUESTION #5 FULL TEXT : Do you snore loudly (louder than talking or can be heard through closed doors)? Tobacco Use History Tobacco Use History - senior director of global commercial technology solutions: Tobacco Use History - senior director of global commercial technology solutions Tobacco Use Smoking Status Never smoker 11/16/24 11:02 Hx Tobacco Use No 11/16/24 11:02 Years Smoking Packs Smoked per Day Smoking Cessation Date was within the last 15 years Hx Smoking Cessation Date Hx Smoking Cessation Counseling Hematologic Medial History Hematologic Hx - senior director of global commercial technology solutions: Hematologic Medical Hx - instructional support assistant Hx of Blood Transfusion No 11/16/24 11:02 Hx of Transfusion in last 3 No 11/16/24 11:02 Months Date of Last Transfusion (if within last 3 months) Ever experience any problems No 11/16/24 11:02 with transfusion(s)? Specify any problems Hx of Preganancy in last 3 N/A 11/16/24 11:02 Months Nurse Filling Out Transfusion NBUCHER 11/16/24 11:02 & Questions: Date: 11/16/24 11/16/24 11:02 Time: 11:03 11/16/24 11:02 Patient unable to answer at this time (ie. confused, unrespo /Reproduction History /Reproductive History - senior director of global commercial technology solutions: /Reproductive Hx- senior director of global commercial technology solutions Hx Now No 11/16/24 11:02 Gestational Age (in weeks): EDC: Hx Hx Para Hx Section SAB No 11/16/24 11:02 [facility] Medical History Family hx of colon cancer Synovial plica of left knee Wears glasses Wears dentures Arthritis Migraine headache Non-smoker History of edema History of pain when walking Tear of medial meniscus of left knee Osteoarthritis of left knee Left knee pain Home Medications ?Medication ?Instructions ?Recorded ?Last Taken ?Type NK 12/31/22 Unknown History Allergy/AdvReac Type Severity Reaction Status Date / Time acetaminophen (From Vicodin) Allergy Other Verified 11/17/24 07:11 hydrocodone (From Vicodin) Allergy Other Verified 11/17/24 07:11 Family History Aunt Breast cancer Maternal Aunt Breast cancer Maternal Grandmother Breast cancer Cancer Maternal Colon cancer Aunt Colon cancer Paternal Uncle Colon cancer Maternal, before age 60 Sister Colon polyps Surgical History History of meniscectomy of left knee History of tubal ligation Hx of ovarian cystectomy Hx of laparoscopy History of delivery Social History household members: spouse current occupation: SAHM Smoking Status: Never smoker alcohol intake: never substance use type: does not use alysia/zoroastrian: Mormon seatbelt use: always do you feel safe at home: Yes additional social history: - Paul Review of Systems (Anesthesia) ROS Narrative System reviewed and no additional complaints, except as documented.
--- NOTE | 2024-11-17 07:33 | H&P.OPEN ---
[facility] - General General Date of Service: 11/17/24 HPI Narrative JOSY LEE, is a 49 F who presents for screening colonoscopy. Patient never had previous colonoscopy. Patient's maternal grandmother and paternal aunt & uncle both had colon cancer along with maternal uncle?the uncle was under 60. Patient's sister did have polyps. Patient states she has bowel movements daily denies any blood. Patient denies any chronic abdominal pain/nausea/vomiting/reflux. [facility] Medical History Family hx of colon cancer Synovial plica of left knee Wears glasses Wears dentures Arthritis Migraine headache Non-smoker History of edema History of pain when walking Tear of medial meniscus of left knee Osteoarthritis of left knee Left knee pain Home Medications ?Medication ?Instructions ?Recorded ?Last Taken ?Type NK 12/31/22 Unknown History Allergy/AdvReac Type Severity Reaction Status Date / Time acetaminophen (From Vicodin) Allergy Other Verified 11/17/24 07:11 hydrocodone (From Vicodin) Allergy Other Verified 11/17/24 07:11 Family History Aunt Breast cancer Maternal Aunt Breast cancer Maternal Grandmother Breast cancer Cancer Maternal Colon cancer Aunt Colon cancer Paternal Uncle Colon cancer Maternal, before age 60 Sister Colon polyps Surgical History History of meniscectomy of left knee History of tubal ligation Hx of ovarian cystectomy Hx of laparoscopy History of delivery Social History household members: spouse current occupation: [employer] Smoking Status: Never smoker alcohol intake: never substance use type: does not use alysia/baptism: [facility] seatbelt use: always do you feel safe at home: Yes additional social history: - Paul Past Medical/Surgical History Planned Operation Planned Operative Procedure(s): CSCOPE Previous Hospitalizations/Surgeries HX Hospitalizations: No Any Problems With Anesthesia: No You/Your Family Experience Fever (Hyperthermia) With Anes: No Cholinesterase deficiency: No Cardiovascular Hx of Irregular Heartbeat and/or Afib: No Hx Heart Attack: No Hx Congestive Heart Failure: No Hx Hypertension: No Hx Pacemaker: No Respiratory Hx Chronic Obstructive Pulmonary Disease (COPD): No Hx Asthma: No Hx Emphysema: No Hx Sleep Apnea: No Hx Respiratory Tract Infection/Cold (presently): No Do You Snore Loudly (louder than talking or can be heard): No Do You Often Feel Tired/ Fatigued/ Sleepy Dring Daytime?: No Has Anyone Observed You Stop Breathing During Sleep?: No Result (for STOP score): Negative Smoking Status: Never smoker Gastrointestinal Hx Ulcer: No Neurological Hx Seizures: No Hx Head/Neck Injury: No Hx Headaches: No Hx Back Injury/Pain: No Does patient have nerve stimulator: No Reproduction : No Miscellaneous Recent Exposure to Contagious Disease: No Allergies acetaminophen (From Vicodin) Allergy (Verified 11/17/24 07:11) Other lightheadedness and dizziness hydrocodone (From Vicodin) Allergy (Verified 11/17/24 07:11) Other lightheadedness and dizziness Discharge Is Pt Admitted From a Penitentiary, or a Residential: No After D/C, Where Do you Plan to Go: Return Home Vital Signs Vital Signs Vital Signs: 11/17/24 07:16 11/17/24 07:18 11/17/24 07:25 Temperature 97.8 F 97.8 F Temperature Source Temporal Pulse Rate 16 L 16 L Respiratory Rate 16 16 Respiratory Pattern Normal Blood Pressure 125/87 H 125/87 H Blood Pressure Mean 99 Blood Pressure Source Monitor Blood Pressure Position Semi-Fowlers Blood Pressure Location Right Arm Pulse Ox 100 100 Oxygen Delivery Method Room Air 11/17/24 07:27 Temperature 97.8 F Temperature Source Pulse Rate 16 L Respiratory Rate 16 Respiratory Pattern Blood Pressure 125/87 H Blood Pressure Mean Blood Pressure Source Blood Pressure Position Blood Pressure Location Pulse Ox 100 Oxygen Delivery Method Weight Weight: 222 lb 10.67 oz Body Mass Index (BMI) 38.2 Physical Exam Const alert, oriented x3 and no apparent distress HEENT normocephalic and head/scalp atraumatic Resp normal respiratory effort Cardio regular rate GI soft to palpation and non-tender; Negative for non-distended Palpation: Negative for guarding Extremity no clubbing, cyanosis or edema Skin no rashes or lesions noted Neuro CN's II-XII intact bilaterally Psych mental status grossly normal Assessment & Plan Assessment/Plan (1) Encounter for screening for malignant neoplasm of colon: Surgery Risks - Colonoscopy I discussed with the patient the risks of the procedure: Yes Risks Include but are not Limited To: Risks include but are not limited to: Bleeding, perforation requiring further surgery, inability to complete colonoscopy requiring barium enema.
--- NOTE | 2024-11-17 08:30 | COLBX_PTH ---
PATIENT: JOSY LEE LOC: EN U#:[id number] AGE/SX: 49/F ROOM: RE11/17/[address]: Dr. Kathi Lopez MD : 1975 BED: DIS: 11/17/2024 SPEC #: [id number] RECD: 11/17/24 11:22 STATUS: SUZI NANCY #: [id number] IKE: 11/17/24 08:[address]: Kathi Lopez DEPT: SURGICAL PATHOLOGY RECD BY: Festus Christie ENTERED: 11/17/24 12:14 SP TYPE: COLON BX OTHR DR: Dr. Giovanny Santa MD Tissues: A - COLON BIOPSY B - Descending colon C - Sigmoid colon biopsy D - Descending colon Procedures: Surgery Specimen Level IV HEADER OPERATION: Colonoscopy and polypectomy PRE-OP DIAGNOSIS: Screening colonoscopy TISSUE SUBMITTED: A- Hepatic flexure polyp, B- Descending colon polyp x2, C- Sigmoid colon polyp at 30cm, D- Descending polyp #2 MICROSCOPIC DIAGNOSIS A. Hepatic flexure polyp, polypectomy: Fragments of tubular adenoma. B. Descending colon polyp x2, polypectomy: Fragments of hyperplastic polyp. C. Sigmoid colon polyp at 30cm, polypectomy: Tubular adenoma. D. Descending colon polyp #2, polypectomy: Hyperplastic polyp. Fragments of fecal material. 11/18/2024 MICROSCOPIC DESCRIPTION Slides are reviewed. GROSS DESCRIPTION A. Received in fixative is one container labeled with the patient's name and designated Hepatic flexure biopsy. The specimen consists of multiple irregular fragments of light chua soft tissue that in aggregate measure 1.0 x 0.2 x 0.1 cm. The specimen is totally submitted in one cassette. B. Received in fixative is one container labeled with the patient's name and designated Descending colon polyp x2. The specimen consists of a chua-pink polyp measuring 0.6 x 0.5 x 0.2cm. This polyp is bisected. Also present in the container are multiple fragments of chua soft tissue measuring in aggregate 1.5 x 0.5 x 0.2cm. The entire specimen is submitted in one cassette. C. Received in fixative is one container labeled with the patient's name and designated Sigmoid colon polyp at 30cm. The specimen consists of a chua-pink polyp measuring 1.0 x 0.5 x 0.5cm. The polyp is bisected and submitted entirely in one cassette. D. Received in fixative is one container labeled with the patient's name and designated Descending colon polyp #2. The specimen consists of multiple irregular fragments of light chua soft tissue mixed with fecal material that in aggregate measure 0.5 x 0.5 x 0.1 cm. The specimen is totally submitted in one cassette. 11/17/2024 TC:1 CPT:33119c2
--- NOTE | 2024-11-17 09:02 | PCM.POST.ANE ---
Anesthesia: Postop Eval I Current Vital Signs Temperature: 97.2 F Pulse Rate: 80 Blood Pressure: 115/77 Respiratory Rate: 16 Pulse Ox: 100 Oxygen Delivery Method: Room Air Assessment Airway patent: Yes Spontaneous unlabored respirations: Yes Mental status: Awake and Calm nausea: No Vomiting: No Anesthesia Complication: No Fluid Hydration Crystalloid volume administer (ml): 90 Total IV fluid infused: 90 Progress Note Anesthesia document: Postop Eval 1 completed: Yes
--- NOTE | 2024-11-17 09:05 | OP.COLON_ITS ---
Patient Name: Debbi Lisa Procedure Date: 11/17/2024 8:09 AM Date of : 1975 Age: 49 Procedure: Colonoscopy Indications: Screening for colon cancer: Family history of colorectal cancer in multiple 2nd degree relatives Providers: Kathi Lopez MD Referring MD: Giovanny Santa Md Medicines: Monitored Anesthesia Care Patient Profile: This is a 49 year old female. Last Colonoscopy: none. The patient's first colonoscopy is today. Complications: No immediate complications. Procedure: Pre-Anesthesia Assessment: - Prior to the procedure, a History and Physical was performed, and patient medications and allergies were reviewed. The patient's tolerance of previous anesthesia was also reviewed. The risks and benefits of the procedure and the sedation options and risks were discussed with the patient. All questions were answered, and informed consent was obtained. Prior Anticoagulants: The patient has taken no anticoagulant or antiplatelet agents. ASA Grade Assessment: Per anesthesia. After reviewing the risks and benefits, the patient was deemed in satisfactory condition to undergo the procedure. After I obtained informed consent, the scope was passed under direct vision. Throughout the procedure, the patient's blood pressure, pulse, and oxygen saturations were monitored continuously. The pediatric colonoscope was introduced through the anus and advanced to the cecum, identified by the appendiceal orifice, ileocecal valve and palpation. The colonoscopy was performed without difficulty. The patient tolerated the procedure well. The quality of the bowel preparation was good. Scope In: 8:19:45 AM Scope Withdrawal Time 0 hours 26 minutes 3 seconds Scope Out: 8:51:34 AM Total Procedure Duration Time 0 hours 31 minutes 49 seconds Findings: The perianal and digital rectal examinations were normal. Three semi-pedunculated polyps were found in the descending colon. The polyps were less than 5 mm in size. These polyps were removed with a hot snare. Resection and retrieval were complete. A less than 5 mm polyp was found in the hepatic flexure. The polyp was sessile. The polyp was removed with a cold biopsy forceps. Resection and retrieval were complete. A 10 mm polyp was found in the sigmoid colon. The polyp was semi-pedunculated. The polyp was removed with a hot snare. Resection and retrieval were complete. The exam was otherwise without abnormality on direct and retroflexion views. Impression: - Three less than 5 mm polyps in the descending colon, removed with a hot snare. Resected and retrieved. - One less than 5 mm polyp at the hepatic flexure, removed with a cold biopsy forceps. Resected and retrieved. - One 10 mm polyp in the sigmoid colon, removed with a hot snare. Resected and retrieved. Recommendation: - Discharge patient to home. - Resume previous diet. - Continue present medications. - Await pathology results. - Repeat colonoscopy in 3 years for surveillance based on pathology results. Procedure Code(s): --- Professional --- 62022, PT, Colonoscopy, flexible; with removal of tumor(s), polyp(s), or other lesion(s) by snare technique 36978, 59, Colonoscopy, flexible; with biopsy, single or multiple Diagnosis Code(s): --- Professional --- Z80.0, Family history of malignant neoplasm of digestive organs D12.4, Benign neoplasm of descending colon D12.3, Benign neoplasm of transverse colon (hepatic flexure or splenic flexure) D12.5, Benign neoplasm of sigmoid colon CPT copyright 2021 [employer]. All rights reserved. The codes documented in this report are preliminary and upon oracle manager review may be revised to meet current compliance requirements. MD Kathi Bearden MD 11/17/2024 9:04:52 AM This report has been signed electronically. Number of Addenda: 0 Note Initiated On: 11/17/2024 8:09 AM
--- NOTE | 2024-11-17 09:05 | OP.CCLET_ITS ---
11/17/2024 Giovanny Santa Md Re : Colonoscopy procedure for Debbi Lisa Dear Kiet This procedure was performed on Sunday, November 17, 2024. My impressions and recommendations are as follows: Impressions : - Three less than 5 mm polyps in the descending colon, removed with a hot snare. Resected and retrieved. - One less than 5 mm polyp at the hepatic flexure, removed with a cold biopsy forceps. Resected and retrieved. - One 10 mm polyp in the sigmoid colon, removed with a hot snare. Resected and retrieved. Recommendations : - Discharge patient to home. - Resume previous diet. - Continue present medications. - Await pathology results. - Repeat colonoscopy in 3 years for surveillance based on pathology results. My findings are described in the full procedure note, which is enclosed. If I can be of further assistance, please feel free to contact me at Doctor phone number(s): , Work: . Sincerely, MD Kathi Bearden MD 11/17/2024 9:04:52 AM This report has been signed electronically.
--- NOTE | 2024-11-17 12:51 | PCM.POSTANE2 ---
Anesthesia Postop Eval I Sum Postop Eval Completion status Anesthesia document: Postop Eval 1 completed: Yes Anesthesia Postop Eval I Summary Anesthesia Postop Eval I Summary: Anesthesia Postop Eval I: Assessment Summary Airway patent Yes 11/17/24 09:03 [email or web address] Spontaneous unlabored Yes 11/17/24 09:03 [email or web address] respirations Mental status Awake,Calm 11/17/24 09:03 [email or web address] nausea No 11/17/24 09:03 [email or web address] Vomiting No 11/17/24 09:03 [email or web address] Anesthesia Postop Eval I: Fluid Summary Crystalloid volume administer 90 11/17/24 09:03 [email or web address] (ml) Colloids volume administered ( ml) Blood Product volume administered (ml) Total IV fluid infused 90 11/17/24 09:03 [email or web address] Anesthesia Postop Eval I: Summary Notes Anesthesia Complication No 11/17/24 09:03 [email or web address] Anesthesia Complication Comment: Post-operative progress note Anesthesia: Postop Eval II Evaluation Mental status: Awake Pain Level: 0 nausea: No Vomiting: No
== END 2024-11-17 09:48 | disposition home or self-care (01) ==
LOC: EN 07:04 → AC 07:07
PROVIDERS: PCP Family Medicine; Referring Provider Family Medicine; Visit Provider Surgery
PROC: 0DJD8ZZ Inspection of Lower Intestinal Tract, Via Natural or Artificial Opening Endoscopic (ICD-10-PCS; CPT 45378; principal; 2024-11-17 08:25)
DX: Z12.11 Encounter for screening for malignant neoplasm of colon (principal); D12.5 Benign neoplasm of sigmoid colon; D12.3 Benign neoplasm of transverse colon; K63.5 Polyp of colon; Z80.0 Family history of malignant neoplasm of digestive organs
CPT/HCPCS: 45385; 45380; 88305; A4216; J2405

== ENCOUNTER 2025-04-19 22:41 | Emergency (ER) | payer OTHER, SELFPAY ==
[2025-04-19 22:42] VITALS: BP 131/100; PULSE 83; RESP 16; TEMP 36.8; O2SAT 100; BMI 38.9
--- NOTE | 2025-04-19 22:51 | EKG12_ITS ---
Test Reason : CP Blood Pressure : */* mmHG Vent. Rate : 75 BPM Atrial Rate : 75 BPM P-R Int : 132 ms QRS Dur : 78 ms QT Int : 384 ms P-R-T Axes : -15 20 11 degrees QTcB Int : 428 ms Normal sinus rhythm Normal ECG Confirmed by Richmond Zarate ([id number]), assistant film editor ROSE MARIE LANZA ([id number]) on 04/21/2025 6:06:53 AM Referred By: Confirmed By: Richmond Zarate
--- NOTE | 2025-04-19 23:11 | RAD_ITS ---
PROCEDURE: CHEST 1 VIEW (PORTABLE) 04/19/2025 REASON FOR EXAM: CHEST PAIN TECHNIQUE: Frontal view of the chest. COMPARISON: None FINDINGS: Heart: The heart size is normal. Lungs: The lungs are clear. Mild hilar bronchovascular congestion is noted. Bones: The bones are unremarkable. Other: No effusion. No pneumothorax. RAD/Chest 1 View (Portable) IMPRESSION: Mild hilar bronchovascular congestion. No focal consolidation. Reading [facility] [id number]
--- NOTE | 2025-04-19 23:39 | EDS_ITS ---
HPI History of Present Illness Chief Complaint: Chest Pain Informant: patient and spouse/S.O. Narrative Narrative: 49-year-old female presenting to the emergency room for evaluation of chest pain. Patient states that this morning she had some discomfort in the left upper chest rating up towards her neck and the shoulder blade area. It was constant throughout the day and she took some ibuprofen and was able to go on about her normal activities. Night when she laid down for bed she stated that it seemed little bit worse and her and her discussed that they felt uncomfortable going to bed. They have concerns about her heart as she notes her father had a heart attack when he was about 62 years old. Patient has no history of thromboembolism. She denies any fever cough shortness of breath. No black or bloody stools. Normal urination. No rashes. She notes when she pushes on the left upper chest and shoulder blade area it is tender to palpation. She notes when she moves her neck there is some discomfort and she feels some radiation into the left arm. She denies any leg symptoms. PFSH PFSH Medical History Family hx of colon cancer Synovial plica of left knee Wears glasses Wears dentures Arthritis Migraine headache Non-smoker History of edema History of pain when walking Tear of medial meniscus of left knee Osteoarthritis of left knee Left knee pain Home Medications ?Medication ?Instructions ?Recorded ?Last Taken ?Type NK 12/31/22 Unknown History Allergy/AdvReac Type Severity Reaction Status Date / Time acetaminophen (From Vicodin) Allergy Other Verified 04/19/25 22:44 hydrocodone (From Vicodin) Allergy Other Verified 04/19/25 22:44 Family History Aunt Breast cancer Maternal Aunt Breast cancer Maternal Grandmother Breast cancer Cancer Maternal Colon cancer Aunt Colon cancer Paternal Uncle Colon cancer Maternal, before age 60 Sister Colon polyps Surgical History History of meniscectomy of left knee History of tubal ligation Hx of ovarian cystectomy Hx of laparoscopy History of delivery Social History household members: spouse current occupation: [employer] Smoking Status: Never smoker alcohol intake: never substance use type: does not use alysia/islam: [facility] seatbelt use: always do you feel safe at home: Yes additional social history: - Paul ASHBY ROS ED Constitutional Constitutional ED: Denies chills, fever(s) or weight loss Eyes Eyes: Denies change in vision or diplopia ENT ENT ED: Denies ear pain, rhinorrhea or sore throat Cardiovascular Cardiovascular: Reports as per HPI and chest pain; Denies orthopnea, palpitations or racing heartbeat Respiratory/Chest Respiratory/Chest: Denies cough, dyspnea or orthopnea Gastrointestinal Gastrointestinal: Denies abdominal pain, diarrhea, nausea or vomiting Genitourinary Genitourinary ED: Denies dysuria, hematuria or urinary frequency Musculoskeletal Musculoskeletal: Reports back pain and neck pain; Denies arthralgias or myalgias Integumentary Denies abscess or rash Neurologic Neurologic: Denies headache(s) or weakness Psychiatric Psychiatric: Denies anxiety, depression, suicidal ideation or suicidal thoughts Endocrine Endocrinology: Denies polydipsia, polyphagia or polyuria Allergic/Immunologic Allergic/Immunologic ED: Denies mouth swelling, tongue swelling or urticaria EXAM Physical Exam Const Vital Signs: 04/19/25 22:42 04/19/25 23:39 04/19/25 23:41 Temperature 98.2 F Temperature Source Oral Pulse Rate 83 64 Respiratory Rate 16 15 Blood Pressure 131/100 H 128/77 H Blood Pressure Mean 110 94 Pulse Ox 100 99 Oxygen Delivery Method Room Air Room Air Room Air 04/20/25 00:00 04/20/25 00:25 Temperature 98.2 F Temperature Source Pulse Rate 69 69 Respiratory Rate 16 Blood Pressure 124/77 H 128/86 H Blood Pressure Mean 92 100 Pulse Ox 99 99 Oxygen Delivery Method Room Air Positive well nourished and well developed General Appearance ED: well developed and NAD HEENT Reports normocephalic, head/scalp atraumatic and moist mucous membranes Eyes PERRL and EOMs intact bilaterally Neck no lymphadenopathy, supple and no JVD Resp normal respiratory effort and clear to auscultation bilaterally Cardio regular rate, regular rhythm and no murmurs GI normal to inspection, nondistended, normoactive bowel sounds and non-tender Palpation: soft Back/Spine no CVA tenderness and normal ROM Extremity normal to inspection General Extremety ED: Negative for edema General Extremity: Negative for edema Neuro oriented x3 and CN's II-XII intact bilaterally Sensorium / Orientation: alert Motor Exam: strength 5/5 throughout Psych mental status grossly normal Mood & Affect: Negative for depressed or tearful Skin no rashes or lesions noted and no wounds MDM MDM MDM Narrative Medical decision making narrative: Differential diagnosis includes pulmonary embolism pneumothorax musculoskeletal chest pain coronary syndrome pericarditis pleural effusion pneumonia EKG is nonischemic. Troponin is less than 6 and this represents greater than 8 hours of constant symptoms. Glucose is 106 creatinine 0.77 D-dimer is normal 0.36. Hemoglobin of 12 white count of 8.3. My independent interpretation of the chest x-ray is no acute process. Given the above symptoms and have reproducible some of her symptoms are I do think this is most likely to be musculoskeletal in nature. Would recommend anti-inflammatories return if worsening follow-up with primary care if not improving patient and her are comfortable with this plan. History & Record Review Discussion w/independent historian: Patient and Significant other Additional record(s) reviewed:: Prior outpatient record and Prior labs Lab Data Attestation: I reviewed the patient's lab results. Labs: Laboratory Results - last 24 hr 04/19/25 23:30 WBC 8.3 RBC 4.16 L Hgb 12.0 Hct 35.6 L MCV 85.6 MCH 28.8 MCHC 33.7 RDW Std Deviation 39.3 RDW Coeff of Toshia 12.6 Plt Count 301 MPV 9.5 Immature Gran % (Auto) 0.500 Neut % (Auto) 57.0 Lymph % (Auto) 31.9 [place] % (Auto) 6.2 Eos % (Auto) 3.8 Baso % (Auto) 0.6 Absolute Neuts (auto) 4.7 Absolute Lymphs (auto) 2.63 Nucleated RBC % 0 D-Dimer Quant (PE/DVT) 0.36 Sodium 141 Potassium 4.0 Chloride 108 Carbon Dioxide 21.5 Anion Gap 11 BUN 13 Creatinine 0.77 Estim Creat Clear Calc 104.41 Est GFR (MDRD) Non-Af 95 BUN/Creatinine Ratio 17.3 Glucose 106 H Calcium 9.1 Troponin T High Sens < 6 Radiography Diagnostic Testing: Clinical Impression(s) from Imaging Studies Chest X-Ray 04/19/25 23:11 IMPRESSION: Mild hilar bronchovascular congestion. No focal consolidation. Reading Location: [place] [address] EKG Initial EKG: Attestation: I personally reviewed and interpreted this EKG as follows: Comments: Normal sinus rhythm ventricular rate of 75 bpm Discharge Plan Triage Chief Complaint: Chest Pain ED Provider: Michael Rod Dx/Rx/DC Orders Clinical Impression: Chest pain Instructions: ED Chest Pain, Noncardiac Prescriptions: No Action NK Primary Care Provider: Giovanny Santa Referrals: Giovanny Santa MD [Primary Care Provider] - 1 Week if not improving Print Language: Togolese Disposition Disposition: Home, Self Care Discharge Date/Time: 04/20/25 00:30
[2025-04-19 23:41] VITALS: BP 128/77; PULSE 64; RESP 15; O2SAT 99
[2025-04-19 23:42] LABS: Absolute Lymphocyte Count 2.63 X10^3/uL (0.83-4.51); Absolute Neutrophil Count 4.7 X10^3/uL (2.0-7.7); Basophil# 0.05 X10^3/uL; Basophil% 0.6 % (0-1); Eosinophil# 0.31 X10^3/uL; Eosinophils% 3.8 % (0-5); Hematocrit 35.6 % (37-47); Lymphocyte # 2.63 X10^3/ul (0.83-4.51); Lymphocyte % 31.9 % (19-41); Mean Corp Hgb Conc 33.7 g/dL (32-36); Mean Corpuscular Hgb 28.8 pg (27.0-32.0); Mean Corpuscular Volume 85.6 fL (81-99); Mean Platelet Vol. 9.5 fl (6.2-12.0); Monocyte# 0.51 X10^3/uL; Monocyte% 6.2 % (0-10); NRBC Flagged by Analyzer 0 % (0-5); Neutrophil # 4.71 X10^3/uL (2.7-7.7); Platelet Count 301 K/mm3 (150-450); RBC Distribution Width CV 12.6 % (11.6-14.6); RBC Distribution Width SD 39.3 fl (35.1-43.9); Red Blood Count 4.16 M/mm3 (4.2-5.4); White Blood Count 8.3 K/mm3 (4.4-11.0)
[2025-04-19 23:58] LABS: D-Dimer Quantitative (DVT/PE) 0.36 FEU/ug/m (0.27-0.49)
[2025-04-20] VITALS: BP 124/77; PULSE 69; O2SAT 99
[2025-04-20 00:03] LABS: Anion Gap 11 (5-15); BUN 13 mg/dL (4-19); BUN/Creat Ratio 17.3 RATIO (10-20); Calcium,Total 9.1 mg/dL (7.6-11.0); Carbon Dioxide 21.5 mmol/L (21.0-32.0); Chloride 108 mmol/L (98-108); Creatinine, Serum 0.77 mg/dL (0.70-1.20); EST Glomerular Filtration Rate 95 (>60); Estimated Creatinine Clearance 104.41 ml/min (50-250); Glucose 106 mg/dL (70-99); Sodium Level 141 mmol/L (133-145); Troponin T High Sensitivity < 6 ng/L (<=14)
[2025-04-20 00:25] VITALS: BP 128/86; PULSE 69; RESP 16; TEMP 36.8; O2SAT 99
== END 2025-04-20 00:30 | disposition home or self-care (01) ==
PROVIDERS: Emergency Provider Emergency Medicine; PCP Family Medicine; Visit Provider Emergency Medicine
DX: R07.9 Chest pain, unspecified (principal); Z80.0 Family history of malignant neoplasm of digestive organs; Z98.51 Tubal ligation status; M54.2 Cervicalgia
CPT/HCPCS: 71045; 80048; 84484; 85025; 85379; 93005; 99283; A4216

== ENCOUNTER → 2025-09-16 | Outpatient (CLI) | payer SELFPAY, OTHER ==
--- NOTE | 2025-09-16 13:45 | BI_ITS ---
EXAM: SCRN MAMM (CAD)W/KATHERINE BILAT DATE: 09/16/2025 CLINICAL HISTORY: F, Age 50 y/o , SCREEN TECHNIQUE: Procedure Code: [id number] Modality: MG Procedure: SCRN MAMM (CAD)W/KATHERINE BILAT COMPARISON: Prior exam(s) dated 08/24/2024, 12/31/2022, 01/20/2019. FINDINGS: TISSUE DENSITY: There are scattered areas of fibroglandular density. Bilateral Breast Mammographic Findings: No significant masses, calcifications or other abnormalities are identified. BI/SCRN MAMM (CAD)W/KATHERINE BILAT IMPRESSION: There is no mammographic evidence of malignancy. OVERALL FINAL ASSESSMENT BI-RADS 1: NEGATIVE. RECOMMENDATION: Routine annual follow-up in 1 Year Additional Recommendation none A letter with findings and recommendations will be mailed to the patient. Reading Location: [id number]
--- NOTE | 2025-09-16 14:09 | US_ITS ---
PROCEDURE: PELVIC W/ TRANSVAGINAL REASON FOR EXAM: RIGHT OVARIAN CYST TECHNIQUE: Procedure Code: [id number] Modality: US Procedure: PELVIC W/ TRANSVAGINAL COMPARISON: August 24, 2024. FINDINGS: Measurements: Uterus: 10 cm x 6.5 cm x 5.4 cm with a volume of 248.8 mL Endometrial Thickness: 9 mm fluid is seen within the endometrium. Right Ovary: 4.2 cm x 2.9 cm x 2.6 cm with a volume of 16.1 mL. Left Ovary: Not visualized. TRANSABDOMINAL: Uterus: Fibroid change although no focal fibroid is seen. Endometrium: Unremarkable. Right ovary: There is a 1.3 cm 1.3 cm 0.8 cm cyst. There is also evidence of a solid and cystic nodule within the ovary measuring 1.4 cm 1.5 cm 1.4 cm. Left ovary: Not visualized. Other: No large pelvic mass identified. Transvaginal sonography was performed to better visualize the endometrium. TRANSVAGINAL: Uterus: Anteverted. Fibroid change. Endometrium: Normal echotexture. Right ovary: Small follicle within it. 1.4 cm 1.5 cm 1.4 cm solid and complex cystic structure in the ovary. Left ovary: Not visualized. Other adnexal findings: None. Cul-de-sac: No free intraperitoneal fluid identified. Tenderness: No tenderness US/Pelvic w/ Transvaginal IMPRESSION: Small follicle in the right ovary as well as the 1.4 cm 1.5 cm 1.4 cm solid cys tic structure suggestive of possible small hemorrhagic follicle. Fibroid uterus. Reading Location: [place] [address]
== END | disposition home or self-care (01) ==
LOC: OPBI 13:31
PROVIDERS: PCP Family Medicine; Referring Provider Nurse Practitioner Women's Health; Visit Provider Nurse Practitioner Women's Health
DX: Z12.31 Encounter for screening mammogram for malignant neoplasm of breast (principal); N83.201 Unspecified ovarian cyst, right side; R10.20 Pelvic and perineal pain unspecified side
CPT/HCPCS: 76830; 76856; 77063; 77067

== ENCOUNTER → 2025-09-22 | Outpatient (CLI) | payer OTHER, SELFPAY ==
[2025-09-23 04:07] LABS: Carcinoembryonic Antigen < 0.6 ng/mL (0.0-4.7)
== END | disposition home or self-care (01) ==
PROVIDERS: PCP Family Medicine; Referring Provider Nurse Practitioner Women's Health; Visit Provider Nurse Practitioner Women's Health
DX: N83.201 Unspecified ovarian cyst, right side (principal); R10.20 Pelvic and perineal pain unspecified side
CPT/HCPCS: 36415; 82378; 86304

== ENCOUNTER → 2025-10-18 | Outpatient (CLI) | payer SELFPAY, OTHER ==
--- NOTE | 2025-10-18 08:41 | US_ITS ---
PROCEDURE: PELVIC W/ TRANSVAGINAL REASON FOR EXAM: RPT 4 WKS TECHNIQUE: Procedure Code: USPELTVAG Modality: US Procedure: PELVIC W/ TRANSVAGINAL COMPARISON: September 19, 2000. FINDINGS: Measurements: Uterus: 10.9 cm x 7.6 cm x 5.2 cm with a volume of 225.4 mL Endometrial Thickness: 6 mm. It is hyperechoic. Right Ovary: 2.8 cm x 2.7 cm x 1.6 cm with a volume of 6.3 mL. Follicles are seen within it. Left Ovary: 2 cm x 1.9 cm x 1.2 cm with a volume of 2.4 mL. TRANSABDOMINAL: Uterus: Heterogeneous myometrial echotexture in keeping with fibroid change although no focal fibroid is seen. Endometrium: Unremarkable. Right ovary: Small follicle is seen within it. Left ovary: Normal size and echotexture. Other: No large pelvic mass identified. Transvaginal sonography was performed to better visualize the endometrium. TRANSVAGINAL: Uterus: Anteverted. Fibroid change. Endometrium: Normal echotexture. Right ovary: Small follicle. Left ovary: Normal size and echotexture. Other adnexal findings: None. Cul-de-sac: No free intraperitoneal fluid identified. Tenderness: No tenderness US/Pelvic w/ Transvaginal IMPRESSION: Enlarged fibroid uterus. Small follicle in the right ovary. Reading Location: [place] [id number]
== END | disposition home or self-care (01) ==
LOC: US 08:36
PROVIDERS: PCP Family Medicine; Referring Provider Nurse Practitioner Women's Health; Visit Provider Nurse Practitioner Women's Health
DX: N83.201 Unspecified ovarian cyst, right side (principal)
CPT/HCPCS: 76830; 76856